=== PATIENT | female | born 1960 ===

== ENCOUNTER 2018-09-29 12:49 | Outpatient (CLI) | payer OTHER | END 2018-09-29 12:50 | disposition home or self-care (01) | LOC: C.MAMMO 12:49 | DX: Z12.31 Encounter for screening mammogram for malignant neoplasm of breast (principal) ==

== ENCOUNTER 2018-12-01 09:45 | Outpatient (CLI) | payer OTHER | END 2018-12-01 09:46 | disposition home or self-care (01) | LOC: C.MAMMO 09:46 ==